=== PATIENT | male | born 1940 | race Caucasian/White ===

== ENCOUNTER → 2016-12-27 | Outpatient (REF) | payer MEDICARE, OTHER ==
[~2016-12-27] MED LIST: ALLO15TA PO; ASPI81TAEC PO; ATOR1TAB19 PO; CALTTAB5 PO; FOSA70TA PO; LISI-538 PO; [UNRECOGNIZED DRUG - OTHER] PO
[2016-12-27 13:19] LABS: PERCENT SATURATION 40.4 % (19.7-37.4)
== END ==
LOC: M LAB REF 12:32
PROVIDERS: ATTEND Internal Medicine Medical Oncology
DX: E83.118 Other hemochromatosis (principal)

== ENCOUNTER → 2017-02-02 | Outpatient (REF) | payer MEDICARE, OTHER ==
[2017-02-02 14:23] LABS: PERCENT SATURATION 47.9 % (19.7-37.4)
== END ==
LOC: M LAB REF 13:34
PROVIDERS: ATTEND Internal Medicine Medical Oncology
DX: E83.110 Hereditary hemochromatosis (principal)

== ENCOUNTER → 2017-02-13 | Outpatient (REF) | payer MEDICARE, OTHER | LOC: M LAB REF 16:23 | PROVIDERS: ATTEND Internal Medicine | DX: M10.9 Gout, unspecified (principal) ==

== ENCOUNTER → 2017-05-24 | Outpatient (REF) | payer MEDICARE, OTHER | LOC: M LAB REF 16:35 | PROVIDERS: ATTEND Internal Medicine | DX: M10.9 Gout, unspecified (principal) ==

== ENCOUNTER → 2017-06-16 | Outpatient (REF) | payer MEDICARE, OTHER ==
[2017-06-16 13:20] LABS: ANION GAP 9 MEQ/L (8-16); BLOOD UREA NITROGEN 18 MG/DL (7-18); CARBON DIOXIDE LEVEL 26 MEQ/L (21-32); CHLORIDE LEVEL 103 MEQ/L (98-107); CREATININE FOR GFR 1.09 MG/DL (0.70-1.30); GLOMERULAR FILTRATION RATE > 60.0 (>42); GLUCOSE, FASTING 88 MG/DL (83-110); POTASSIUM SERUM 4.7 MEQ/L (3.5-5.1); SODIUM LEVEL 138 MEQ/L (136-145)
== END ==
LOC: M LABDRAW1 12:10
PROVIDERS: ATTEND Internal Medicine Endocrinology, Diabetes & Metabolism
DX: M81.0 Age-related osteoporosis without current pathological fracture (principal)

== ENCOUNTER → 2017-07-17 | Outpatient (REF) | payer MEDICARE, OTHER ==
[2017-07-17 18:41] LABS: PERCENT SATURATION 89.6 % (19.7-50.0)
== END ==
LOC: M LAB REF 16:25
PROVIDERS: ATTEND Internal Medicine Medical Oncology
DX: E83.110 Hereditary hemochromatosis (principal)

== ENCOUNTER → 2017-11-29 | Outpatient (REF) | payer MEDICARE, OTHER ==
[2017-11-29 13:35] LABS: URIC ACID 4.1 MG/DL (3.5-7.2)
== END ==
LOC: M LAB REF 12:06
DX: M10.9 Gout, unspecified (principal)
CPT/HCPCS: 84550

== ENCOUNTER → 2018-01-15 | Outpatient (REF) | payer MEDICARE, OTHER ==
[2018-01-15 18:53] LABS: FERRITIN 242 NG/ML (26-388); IRON (FE) 233 UG/DL (65-175); PERCENT SATURATION 96.3 % (19.7-50.0); TOTAL IRON BINDING CAPACITY 242 UG/DL (250-450)
== END ==
LOC: M LAB REF 17:28
DX: E83.119 Hemochromatosis, unspecified (principal)
CPT/HCPCS: 83550

== ENCOUNTER → 2018-01-25 | Outpatient (REF) | payer MEDICARE, OTHER ==
[2018-01-25 11:41] LABS: CALCIUM LEVEL 9.4 MG/DL (8.8-10.2)
[2018-01-25 11:51] LABS: TOTAL 25(OH) VITAMIN D 28.5 NG/ML (30.0-100.0)
== END ==
LOC: M LABDRAW1 10:34
DX: E55.9 Vitamin D deficiency, unspecified (principal)
CPT/HCPCS: 82310

== ENCOUNTER 2018-03-06 06:40 | Day surgery (SDC) | payer MEDICARE, OTHER ==
[~2018-03-06 06:40] MED LIST changes: -ALLO15TA PO; -ASPI81TAEC PO; -ATOR1TAB19 PO; -CALTTAB5 PO; -FOSA70TA PO; -LISI-538 PO; +SLF 3 ML SYR IV; -[UNRECOGNIZED DRUG - OTHER] PO
[2018-03-06] MEDS ORDERED: fentaNYL 100 MCG/2 ML INJECTION (J3010) As Ordered (08:36)
[2018-03-06] MEDS ORDERED: MIDAZOLAM INJ 2 MG/2 ML VIAL (J2250) As Ordered (08:37)
[2018-03-06] MEDS: LIDOCAINE 2% W/EPIN INJ 20ML **PRES FREE As Ordered (09:20)
[2018-03-06] MEDS: TOBRADEX OPHTH OINT 3.5 GM As Ordered (09:20)
[2018-03-06] MEDS: LIDOCAINE 3.5 % 1ML OPHTH TOPICAL GEL OU (09:20)
== END 2018-03-06 10:35 | disposition home or self-care (01) ==
LOC: M SDC 06:40
DX: H02.413 Mechanical ptosis of bilateral eyelids (principal); H02.831 Dermatochalasis of right upper eyelid; H02.834 Dermatochalasis of left upper eyelid; I10 Essential (primary) hypertension; E78.5 Hyperlipidemia, unspecified; E03.9 Hypothyroidism, unspecified; E83.119 Hemochromatosis, unspecified; N40.0 Benign prostatic hyperplasia without lower urinary tract symptoms; Z87.891 Personal history of nicotine dependence; Z79.82 Long term (current) use of aspirin; Z79.899 Other long term (current) drug therapy
CPT/HCPCS: 67904

== ENCOUNTER → 2018-07-18 | Outpatient (REF) | payer MEDICARE, OTHER ==
[2018-07-18 20:01] LABS: FERRITIN 215 NG/ML (26-388); IRON (FE) 117 UG/DL (65-175); TOTAL IRON BINDING CAPACITY 244 UG/DL (250-450)
[2018-07-18 21:08] LABS: PERCENT SATURATION 47.9 % (19.7-50.0)
== END ==
LOC: M LAB REF 17:04
DX: D64.9 Anemia, unspecified (principal)
CPT/HCPCS: 83550

== ENCOUNTER → 2018-07-23 | Outpatient (REF) | payer MEDICARE, OTHER ==
[2018-07-23 15:49] LABS: CALCIUM LEVEL 9.4 MG/DL (8.8-10.2)
== END ==
LOC: M LABDRAW1 13:29
DX: E55.9 Vitamin D deficiency, unspecified (principal)
CPT/HCPCS: 82310

== ENCOUNTER → 2018-09-26 | Outpatient (REF) | payer MEDICARE, OTHER ==
[2018-09-26 13:53] LABS: APPEARANCE, URINE CLEAR (CLEAR); BACTERIA, URINE AUTO NEGATIVE (NEGATIVE); BILIRUBIN, URINE AUTO NEGATIVE (NEGATIVE); BLOOD, URINE BLOOD 1+ (NEGATIVE); COLOR, URINE STRAW (YELLOW); GLUCOSE, URINE (UA) AUTO NEGATIVE (NEGATIVE); KETONE, URINE AUTO NEGATIVE (NEGATIVE); LEUKOCYTE ESTERASE, URINE AUTO NEGATIVE (NEGATIVE); NITRITE, URINE AUTO NEGATIVE (NEGATIVE); PROTEIN, URINE AUTO NEGATIVE (NEGATIVE); RBC, URINE AUTO 0 /HPF (0-3); SPECIFIC GRAVITY URINE AUTO 1.006 (1.002-1.035); SQUAMOUS EPITHELIAL CELL UR AU 0 /HPF (0-6); UROBILINOGEN, URINE AUTO 0.2 mg/dL (0.0-2.0); WBC, URINE AUTO 0 /HPF (0-3)
== END ==
LOC: M SMT 12:59
DX: R10.9 Unspecified abdominal pain (principal)
CPT/HCPCS: 81001

== ENCOUNTER → 2019-02-27 | Outpatient (REF) | payer MEDICARE, OTHER ==
[~2019-02-27] MED LIST changes: +ALLO100T PO; +ALLO300T2 PO; +ASPI81TAEC PO; +ATOR1TAB19 PO; +CALCTAB7 PO; +CALTTAB5 PO; +FISH100049 PO; +FOSA70TA PO; +L-FO500T PO; +LEVA250T13 PO; +LEVO25TA5 PO; +LISI-538 PO; +LISI10TA4 PO; -SLF 3 ML SYR IV; +VITA100067 PO; +[UNRECOGNIZED DRUG - OTHER] PO
== END ==
LOC: M LAB REF 13:13
PROVIDERS: ATTEND Internal Medicine Pulmonary Disease
DX: R05 Cough (principal)

== ENCOUNTER → 2019-03-07 | Outpatient (CLI) | payer MEDICARE, OTHER ==
--- NOTE | 2019-03-07 11:54 | REP ---
COMPLETE ABDOMEN ULTRASOUND: HISTORY: Hemochromatosis. Filling defects are present in the gallbladder consistent with gallstones and gravel. The gallbladder wall measures 2.7 mm. The common bile duct measures 4.4 mm. There is fatty infiltration of the liver. Several cysts are present in the liver. These measure 8.7, 7, and 7.5 mm in maximum dimension. The visualized pancreas is normal in echogenicity. The spleen is normal in echogenicity. The spleen measures 16.4 x 4.1 x 10.3 cm. The right kidney measures 5.8 cm in transverse x 5.4 cm in AP x 11.9 cm in cephalocaudal dimensions. The left kidney measures 6.4 cm in transverse x 7 cm in AP x 12.2 cm in cephalocaudal dimensions. Multiple cysts are present in the right kidney. The largest three measure 1.5, 4.1 and 2.5 cm in maximum dimension. A 2.3 cm cyst is present in the left kidney. The distal abdominal aorta measures 2.1 cm in width. IMPRESSION: 1. Gallbladder cholelithiasis and gravel. 2. Fatty infiltration of the liver. There are several small liver cysts. 3. Bilateral renal cysts. Electronically Signed by Kervin Polanco MD 03/07/2019 12:01 P
== END ==
LOC: M RAD 09:17
PROVIDERS: ATTEND Internal Medicine Hematology & Oncology
DX: K80.20 Calculus of gallbladder without cholecystitis without obstruction (principal); K76.0 Fatty (change of) liver, not elsewhere classified; K76.89 Other specified diseases of liver; N28.1 Cyst of kidney, acquired

== ENCOUNTER 2019-04-23 08:27 | Day surgery (SDC) | payer MEDICARE, OTHER ==
[~2019-04-23] VITALS: Ht 167.6 cm; Wt 86.2 kg
[~2019-04-23 08:27] MED LIST changes: +D3 H2000 PO; +FISH1000 PO
[2019-04-23] MEDS ORDERED: NS 1,000 ML IV ONE (09:30)
[2019-04-23] MEDS ORDERED: PROPOFOL 200 MG/20 ML VIAL As Ordered ONE ×2 (10:45→11:27)
[2019-04-23 11:40] VITALS: BP 120/81
--- NOTE | 2019-04-23 12:00 | ROOR ---
Patient Name: Dheeraj Uribe Procedure Date: 04/23/2019 10:26 AM Date of : 1940 Age: 78 Room: [facility] Gender: Male Note Status: Finalized Procedure: Colonoscopy Indications: High risk colon cancer surveillance: Personal history of non-advanced adenoma, Last colonoscopy: January 2016 Providers: Fish Swain MD Referring MD: Ada SCOTT MD Requesting Provider: Medicines: Monitored Anesthesia Care Complications: No immediate complications. Procedure: Pre-Anesthesia Assessment: - Prior to the procedure, a History and Physical was performed, and patient medications and allergies were reviewed. The patient is competent. The risks and benefits of the procedure and the sedation options and risks were discussed with the patient. All questions were answered and informed consent was obtained. Patient identification and proposed procedure were verified by the physician, the nurse and the anesthesiologist in the procedure room. Mental Status Examination: alert and oriented. CV Examination: regular rate and rhythm. Prophylactic Antibiotics: The patient does not require prophylactic antibiotics. Prior Anticoagulants: The patient has taken no previous anticoagulant or antiplatelet agents. ASA Grade Assessment: III - A patient with severe systemic disease. After reviewing the risks and benefits, the patient was deemed in satisfactory condition to undergo the procedure. The anesthesia plan was to use monitored anesthesia care (MAC). Immediately prior to administration of medications, the patient was re-assessed for adequacy to receive sedatives. The heart rate, respiratory rate, oxygen saturations, blood pressure, adequacy of pulmonary ventilation, and response to care were monitored throughout the procedure. The physical status of the patient was re-assessed after the procedure. The Colonoscope was introduced through the anus and advanced to the ileocolonic anastomosis. The colonoscopy was somewhat difficult due to a redundant colon. The patient tolerated the procedure well. The quality of the bowel preparation was excellent. Findings: The perianal and digital rectal examinations were normal. Two sessile polyps were found in the proximal transverse colon. The polyps were diminutive in size. These were biopsied with a cold large-capacity forceps for histology. Estimated blood loss was minimal. Two sessile polyps were found in the distal transverse colon. The polyps were small in size. These polyps were removed with a hot snare. Resection and retrieval were complete. Two sessile polyps were found in the descending colon. The polyps were small in size. These polyps were removed with a hot snare. Resection and retrieval were complete. Estimated blood loss: none. Multiple medium-mouthed diverticula were found in the entire colon. Impression: - Two diminutive polyps in the proximal transverse colon. Biopsied. - Two small polyps in the distal transverse colon, removed with a hot snare. Resected and retrieved. - Two small polyps in the descending colon, removed with a hot snare. Resected and retrieved. - Diverticulosis in the entire examined colon. Recommendation: - Discharge patient to home. - Resume previous diet. - Continue present medications. - Await pathology results. Fish Swain MD Fish Swain MD 04/23/2019 11:59:45 AM Electronically signed by Fish Swain MD Number of Addenda: 0 Note Initiated On: 04/23/2019 10:26 AM Estimated Blood Loss: Estimated blood loss was minimal.
== END 2019-04-23 12:14 | disposition home or self-care (01) ==
LOC: M OPP 08:27
PROVIDERS: ATTEND Surgery
DX: D12.3 Benign neoplasm of transverse colon (principal); D12.4 Benign neoplasm of descending colon; K63.5 Polyp of colon; K57.30 Diverticulosis of large intestine without perforation or abscess without bleeding; Z86.010 Personal history of colon polyps

== ENCOUNTER → 2019-07-24 | Outpatient (REF) | payer MEDICARE, OTHER ==
[2019-07-24 16:10] LABS: BLOOD UREA NITROGEN 25 MG/DL (7-18); CALCIUM LEVEL 8.9 MG/DL (8.8-10.2); CARBON DIOXIDE LEVEL 23 MEQ/L (21-32); CHLORIDE LEVEL 104 MEQ/L (98-107); CREATININE FOR GFR 1.07 MG/DL (0.70-1.30); GLOMERULAR FILTRATION RATE > 60.0 (>42); GLUCOSE, FASTING 87 MG/DL (70-100); POTASSIUM SERUM 4.7 MEQ/L (3.5-5.1); SODIUM LEVEL 137 MEQ/L (136-145)
[2019-07-24 16:21] LABS: TOTAL 25(OH) VITAMIN D 38.4 NG/ML (30.0-100.0)
== END ==
LOC: M LABDRAW1 12:29
PROVIDERS: ATTEND Nurse Practitioner Family
DX: M81.0 Age-related osteoporosis without current pathological fracture (principal); E55.9 Vitamin D deficiency, unspecified

== ENCOUNTER → 2019-07-31 | Outpatient (CLI) | payer MEDICARE, OTHER ==
[~2019-07-31] VITALS: Ht 165.1 cm; Wt 88.2 kg
[2019-07-31 10:55] VITALS: BP 139/59
[2019-07-31] MEDS: ZOLEDRONIC ACID 5 MG in APPROPRIATE DILUENT 1 EA IV ONE (11:22)
[2019-07-31 11:55] VITALS: BP 125/64
== END ==
LOC: M INFU 10:49
PROVIDERS: ATTEND Internal Medicine Endocrinology, Diabetes & Metabolism
DX: M81.0 Age-related osteoporosis without current pathological fracture (principal)
CPT/HCPCS: 96365; J3489

== ENCOUNTER 2019-09-01 17:00 | Emergency (ER) | payer MEDICARE, OTHER ==
[~2019-09-01] VITALS: Ht 167.6 cm; Wt 86.8 kg
[2019-09-01] MEDS ORDERED: TRAM50TA2 PO (17:09)
[2019-09-01] MEDS ORDERED: FLOM0.4C39 PO (17:09)
[2019-09-01] MEDS ORDERED: CALCTAB89 PO (17:09)
[2019-09-01] MEDS ORDERED: LIDOCAINE 5% OINT 30 GM TOP STA (17:25)
[2019-09-01] MEDS ORDERED: ACETAMINOPHEN 325 MG TAB PO ONE (17:30)
[2019-09-01] MEDS ORDERED: METHOCARBAMOL 500 MG TAB PO ONE (17:30)
[2019-09-01] MEDS ORDERED: METH1TAB40 PO (18:54)
[2019-09-01] MEDS ORDERED: LIDO1CRE2 TOP (18:54)
[2019-09-01 19:00] VITALS: BP 114/61
== END 2019-09-01 19:04 | disposition home or self-care (01) ==
LOC: M ED 17:00
DX: M54.2 Cervicalgia (principal); M62.838 Other muscle spasm; K21.9 Gastro-esophageal reflux disease without esophagitis; M19.90 Unspecified osteoarthritis, unspecified site; N40.1 Benign prostatic hyperplasia with lower urinary tract symptoms; I10 Essential (primary) hypertension; Z79.899 Other long term (current) drug therapy

== ENCOUNTER → 2019-09-17 | Outpatient (CLI) | payer MEDICARE, OTHER ==
[~2019-09-17] MED LIST changes: +CALCTAB89 PO; +FLOM0.4C39 PO; +LIDO1CRE2 TOP; +METH1TAB40 PO; +TRAM50TA2 PO
[2019-09-17 10:40] LABS: HEMATOCRIT 47.4 % (42.0-52.0); HEMOGLOBIN 15.6 g/dl (13.5-17.5); MEAN CORPUSCULAR HEMOGLOBIN 33.4 pg (27.0-33.0); MEAN CORPUSCULAR HGB CONC 32.9 g/dl (32.0-36.5); MEAN CORPUSCULAR VOLUME 101.5 fl (80.0-96.0); PLATELET COUNT, AUTOMATED 162 10^3/uL (150-450); RED BLOOD COUNT 4.67 10^6/uL (4.30-6.10); WHITE BLOOD COUNT 6.9 10^3/uL (4.0-10.0)
--- NOTE | 2019-09-17 10:44 | REP ---
Two-view chest: 09/17/2019. Indication: Preoperative assessment. Comparison: None. Findings: The lungs are clear. There is no pleural effusion or pneumothorax. The cardiomediastinal silhouette is unremarkable. Impression: No acute cardiopulmonary process. Electronically Signed by Isaiah Thompson DO 09/17/2019 10:36 A
[2019-09-17 10:51] LABS: INR 1.14; PROTHROMBIN TIME 14.3 SECONDS (11.8-14.0)
[2019-09-17 11:06] LABS: ERYTHROCYTE SEDIMENTATION RATE 19 mm/hr (0-20)
[2019-09-17 11:12] LABS: ALBUMIN 3.9 GM/DL (3.2-5.2); ALT/SGPT 51 U/L (12-78); BILIRUBIN,TOTAL 0.6 MG/DL (0.2-1.0); BLOOD UREA NITROGEN 18 MG/DL (7-18); CALCIUM LEVEL 9.9 MG/DL (8.8-10.2); CARBON DIOXIDE LEVEL 28 MEQ/L (21-32); CHLORIDE LEVEL 106 MEQ/L (98-107); CREATININE FOR GFR 1.05 MG/DL (0.70-1.30); GLOMERULAR FILTRATION RATE > 60.0 (>42); GLUCOSE, FASTING 92 MG/DL (70-100); POTASSIUM SERUM 4.4 MEQ/L (3.5-5.1); SODIUM LEVEL 141 MEQ/L (136-145); TOTAL PROTEIN 7.6 GM/DL (6.4-8.2)
--- NOTE | 2019-09-17 15:23 | ECGEPIP ---
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
== END ==
LOC: M LAB 09:29
PROVIDERS: ATTEND Orthopaedic Surgery
DX: Z01.811 Encounter for preprocedural respiratory examination (principal); M16.11 Unilateral primary osteoarthritis, right hip

== ENCOUNTER 2019-10-14 07:30 | Inpatient (IN) | payer MEDICARE, OTHER ==
--- NOTE | 2019-09-23 18:12 | CR ---
DATE OF CONSULTATION: 09/23/2019 CONSULTATION REPORT FOR: Dr. Girish Pete REASON FOR CONSULTATION: Right total hip arthroplasty. Dear Dr. Pete, Thank you for asking me to see Mr. Dheeraj Uribe in consultation prior to his right total hip arthroplasty (MERY). Mr. Uribe is, as you know, a 79-year-old gentleman with a past medical history of hemochromatosis hypertension, hyperlipidemia, osteoarthritis (OA), degenerative joint disease (DJD). The patient has had hip and back pain with extensive evaluation and treatment interventions, eager to proceed with hip replacement, hoping that he will be able to be more mobile. The patient is active, maintaining his home and yard. He denies any chest pain, palpitations, syncope or presyncope. The patient has a history of hemochromatosis. He sees them shortly. He expects that he will need phlebotomy next week. The patient has benign prostatic hypertrophy (BPH). He has a history of transurethral resection of the prostate (TURP) times two. His nocturia has improved with the use of the tamsulosin. The patient has osteoporosis. He follows with Dr. Bella Pete. He is maintained on IV Reclast. The patient sees pulmonary associates for bronchiectasis. He has morning phlegm production, chronic, stable and unchanged. The patient has a history of colonic polyps. He is up-to-date with his colonoscopy. He has had a total of 43 polyps removed over the years. The patient reports that he has been placed on mupirocin topically five times a day in the nose as well as chlorhexidine bathing prior to surgery. He is not aware that he had any methicillin-resistant Staphylococcus aureus (MRSA) screening. The patient otherwise denies any fevers or chills, chest pain or shortness of breath, nausea, vomiting or change in bowels. PAST MEDICAL HISTORY: 1. Hypertension. 2. Hyperlipidemia. 3. Lumbar disc herniation, 1970 surgical repair. 4. Partial colectomy in 1999 secondary to abscess. 5. Benign prostatic hypertrophy (BPH), status post transurethral resection of the prostate (TURP). 6. Tobacco abuse, quit 10/08/2013. 7. History of alcohol overuse. 8. Right eyelid surgery in 12/07/2005. 9. Gout. 10. Hyperglycemia. 11. Adenomatous colonic polyps. Last colonoscopy 04/23/2019, repeat five years. 12. History of hemochromatosis in 2013, recurrent phlebotomies. 13. Osteoporosis, known compression fractures, status post Reclast June 2016, June 2018 and 2018. 14. Hypoandrogenism 2014. 15. Mild degenerative valve disease per echo 03/13/2015. 16. Status post bilateral cataract extractions 2015. 17. Erectile dysfunction. 18. Left inguinal hernia per MRI of the pelvis 06/11/2013. 19. Hypothyroidism. 20. Bronchiectasis per pulmonary consult, confirmed with chest CT 2018 showing emphysema, bullae and bronchiectasis. 21. Fatty liver per ultrasound 03/07/2019. 22. Cholelithiasis per ultrasound 03/07/2019. MEDICATIONS: - allopurinol 300 mg daily - atorvastatin 20 mg daily - calcium plus D daily - fish oil 1000 mg daily - levothyroxine 25 mcg daily - lisinopril 10 mg daily - lysine 500 mg daily - tamsulosin 0.4 mg daily - vitamin D3 2000 international units daily ALLERGIES: No known drug allergies. FAMILY HISTORY: Hypertension, father with a heart attack at 89. Mother obesity and osteoarthritis, of natural causes at 86. A daughter has hyperthyroidism. A brother has hypertension and carpal tunnel. Grandparents had chronic obstructive pulmonary disease (COPD). SOCIAL HISTORY: , lives with his daughter and son-in-law in a house they own with him having a small apartment. The patient smoked 56 years. He quit 10/08/2013. Alcohol: He consumes two beers a day. PHYSICAL EXAMINATION: No acute distress. VITAL SIGNS: As documented, weight is 187 with a body mass index (BMI) of 31, oxygen saturation is 96%, blood pressure 116/80 with a heart rate of 96. HEENT: Head is normocephalic. Neck is supple. Pupils equal, reactive to light. Extraocular movements are intact. His sclera is anicteric. Ears: A scant amount of cerumen. Tympanic membranes slightly scarred. Tongue is midline. He has upper denture. Posterior pharynx without inflammation. Neck is supple. No thyromegaly, jugular venous distention (JVD) or carotid bruits. RESPIRATORY: Increased anteroposterior (AP) diameter, decreased breath sounds, symmetric excursion. CARDIOVASCULAR: Regular rate and rhythm, soft systolic murmur. ABDOMEN: Protuberant, soft, nontender. No hepatosplenomegaly. GENITOURINARY (): Deferred. EXTREMITIES: No cyanosis, clubbing or edema. DERMATOLOGIC: Multiple moles. NEUROLOGIC: Alert and oriented. Cranial nerves III-XII are intact. LABORATORY DATA: Normal INR, CBC except for an MCV of 101, normal metabolic profile and liver panel. The patient's last sugar was in May at 85 with lipids showing total cholesterol 162, triglycerides of 155. EKG shows normal sinus rhythm, unchanged. Chest x-ray shows no acute disease. IMPRESSION: Mr. Dheeraj Uribe is a 79-year-old gentleman with multiple cardiovascular risk factors positive for age, hyperlipidemia, hyperglycemia, hypertension who has no signs or symptoms indicative of cardiovascular ischemia and is felt to be optimized and at low risk from cardiovascular complications from the proposed surgical intervention which can be further minimized by the followin. Hypertension. Take lisinopril as usual the night before surgery. 2. Hyperlipidemia. Stop fish oil one week before surgery. Take atorvastatin as usual the evening prior to surgery. 3. Gout. Take allopurinol as usual the morning of surgery. 4. Hypothyroid. Take levothyroxine the morning of surgery with a sip of water. 5. Osteoporosis. Hold calcium and D the morning of surgery. He is up-to-date with Reclast infusion. 6. Hemochromatosis. He sees hematology/oncology shortly and expect he will be phlebotomized before surgery. 7. Hyperglycemia. Dietary advice reinforced. 8. Osteoarthritis. No nonsteroidal antiinflammatory drugs (NSAIDs) one week before surgery. I have approved the use of Tylenol. Thank you very much for this consultation. Please call with questions or concerns.
--- NOTE | 2019-10-08 10:27 | HPE ---
DATE OF ADMISSION: 10/14/2019 HISTORY OF PRESENT ILLNESS: Mr. Uribe is a pleasant 79-year-old male with continuing symptomatic right hip osteoarthritis and avascular necrosis. Mr. Uribe consented for a right total hip arthroplasty per Dr. Girish Pete. Medical optimization per Dr. Sofia with x-rays showing advanced osteoarthritis and AVN. ALLERGIES: None known to drugs. MEDICATION LIST: Includes: - allopurinol 300 mg daily - atorvastatin 20 mg daily - calcium plus D daily - fish oil 1000 mg daily - levothyroxine 25 mcg daily - lisinopril 10 mg daily - lysine 500 mg daily - tamsulosin 0.4 mg daily - Vitamin D3 2000 international units daily MEDICAL PROBLEM LIST: Includes: Symptomatic right hip osteoarthritis with avascular necrosis. Hypercholesteremia. Hypothyroidism. Hypertension. Benign prostatic hypertrophy (BPH). PAST MEDICAL HISTORY: Hypertension. Hyperlipidemia. Lumbar disc herniation. Partial colectomy 1999 secondary to abscess. Benign prostatic hypertrophy. Tobacco abuse, quit 10/08/2013. History of alcohol overuse. Gout. Hyperglycemia. Adenomatous colonic polyps. Hemochromatosis 2013, recurrent phlebotomies. Osteoporosis. Hypoandrogenism 2014. Mild degenerative valve disease per echo. Erectile dysfunction. Left inguinal hernia. Hypothyroidism. Bronchiectasis. Fatty liver. PAST SURGICAL HISTORY: Lumbar disk surgical repair 1969. Partial colectomy 1999. Transurethral resection of prostate (TURP). Right eyelid surgery 12/07/2005. Last colonoscopy 04/23/2019. Bilateral cataract extractions 2015. Left inguinal hernia repair 06/11/2013. SOCIAL HISTORY: He is , lives with his daughter and son-in-law in a house they own with him having a small apartment. He smoked 56 years, quit 2012. Consumes two beers a day. FAMILY HISTORY: Hypertension. Father with heart attack at 89. Mother obesity, arthritis, of natural causes at 86. Daughter has hypothyroidism. Brother has hypertension and carpal tunnel. Grandparents had chronic obstructive pulmonary disease. REVIEW OF SYSTEMS: Denies chest pain, shortness of breath, dyspnea on exertion, fever, chills, malaise, upper respiratory or urinary tract symptoms. LABORATORY DATA: Labs were reviewed 09/24/2019 shows MCV 102.5, MCH 34.1. Lymph percentage 17.6. [place] percentage 17.2. Lymph number 1.1. [place] number 1.0. ProTime 14.3. Anion gap 7, MCV 101.5. MCH 33.4. The subsequent mentioned MCV and MCH were from 09/17/2019. EKG results by Dr. Silveira sinus rhythm, [facility] 09/17/2019. Chest x-ray [facility] service date 09/17/2019 no acute cardiopulmonary process. PHYSICAL EXAMINATION: Blood pressure 120/76, pulse 68, temperature 97.8, height 65.5, weight 185 pounds, 5 ounces, body mass index (BMI) 30.4, respirations 17. This is a pleasant 79-year-old male in no acute distress. He is alert and oriented times three. Mood and affect are appropriate. He is ambulating favoring of his left lower extremity, antalgia about his right. Right hip range of motion is limited and irritable throughout range. Bilateral lower extremity skin is intact. Benign noninfectious looking. Bowel sounds times four, soft, nontender. Chest rises symmetrically. Regular rate and rhythm. Lungs clear to auscultation. Neck supple. Negative JVD or bruits. Normocephalic. IMPRESSION: 1. 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 2. Patient consented for right total hip arthroplasty per Dr. Girish Pete. 3. Medical optimization per Dr. Sofia, 09/23/2019. 4. On-call to OR 2 grams IV Kefzol in OR. 5. Sequential compression devices (SCD) and thromboembolic deterrent stockings (TEDS) in OR. INDICATION Hydrated. MTDD
[~2019-10-14] VITALS: Ht 167.6 cm; Wt 84.4 kg
[~2019-10-14 07:30] MED LIST changes: +LIDOCAINE 1% MDV 20ML VIAL SQ PRN; +LR 1,000 ML IV ONE; +ceFAZolin SOD 2 GM in IV 1 EA IV ONE
[2019-10-14] MEDS ORDERED: D 202000 PO (12:05)
--- NOTE | 2019-10-14 12:13 | IPN ---
DATE: The patient seen and examined. He wished to go ahead with a right total hip arthroplasty. He understands the nature this, the risks of bleeding, infection, damage to nerves, vessels, persistent pain, wear loosening, dislocation, leg length inequality, blood clots, medical problems, among others. Preop clearance was obtained.
[2019-10-14] MEDS ORDERED: BUPIVACAINE LIPOSOME/PF 1.3% 20ML VIAL (13.3MG/ML)(EXPAREL)(C9290 PER1MG) As Ordered ONE (12:17)
[2019-10-14] MEDS ORDERED: ceFAZolin 1GM INJ (J0690 PER 500MG) As Ordered ONE (12:17)
[2019-10-14] MEDS ORDERED: EPINEPHrine INJ 1 MG/ML 1ML AMP As Ordered ONE (12:17)
[2019-10-14] MEDS ORDERED: TRANEXAMIC ACID 100 MG/ML 10ML VIAL As Ordered ONE (12:17)
[2019-10-14] MEDS ORDERED: MIDAZOLAM INJ 2 MG/2 ML VIAL (J2250) As Ordered ONE (14:27)
[2019-10-14] MEDS ORDERED: PROPOFOL 200 MG/20 ML VIAL As Ordered ONE ×2 (14:27→14:53)
[2019-10-14] MEDS ORDERED: LIDOCAINE 2% INJ 100 MG/5 ML SDV (FOR ANES.) As Ordered ONE (14:27)
[2019-10-14] MEDS ORDERED: PHENYLEPHRINE INJ 10MG/ML VIAL (J2370) As Ordered ONE (14:47)
[2019-10-14] MEDS ORDERED: PHENYLephrine HCL 500 MCG/5 ML (100MCG/ML) SYRINGE (J2370) As Ordered ONE (14:53)
[2019-10-14] MEDS ORDERED: FLEET ENEMA PR PRN (16:00)
[2019-10-14] MEDS ORDERED: fentaNYL 100 MCG/2 ML INJECTION (J3010) IV PRN (16:00)
[2019-10-14] MEDS ORDERED: LR 1,000 ML IV SCH ×2 (16:00)
[2019-10-14] MEDS ORDERED: PERCOCET 5MG/325MG TAB PO PRN (16:00)
[2019-10-14] MEDS ORDERED: MORPHINE 2 MG/ML 1ML VIAL (J2270) IV PRN ×2 (16:00)
[2019-10-14] MEDS ORDERED: ACETAMINOPHEN TAB 650MG DOSE (2X325MG) PO PRN (16:00)
[2019-10-14] MEDS ORDERED: ONDANSETRON 4MG/2ML VIAL (J2405) IV PRN ×2 (16:00)
[2019-10-14 17:00] VITALS: BP 134/71
[2019-10-14 17:30] VITALS: BP 144/88
--- NOTE | 2019-10-14 17:40 | CR ---
DATE OF CONSULTATION: 10/14/2019 My preceptor for this encounter is Dr. Roshan White REQUESTING PROVIDER: Dr. Girish Pete REASON FOR CONSULTATION: Medical management, status post surgery. HISTORY OF PRESENT ILLNESS: Mr. Uribe is a pleasant 79-year-old male who is status post right total hip arthroplasty per Dr. Girish Pete for symptomatic right hip osteoarthritis and avascular necrosis. His medical optimization prior to surgery was done by his primary care provider, Dr. Ada Sofia. He is seen in the post-anesthesia care unit (PACU) and has no complaint at this time. PAST MEDICAL HISTORY: Hypertension. Hyperlipidemia. Lumbar disc herniation. Benign prostatic hypertrophy. History of tobacco abuse, quit in October 2013. Gout. History of alcohol overuse. Hyperglycemia. History of adenomatous colonic polyps. Hemochromatosis, managed with recurrent phlebotomies. Osteoporosis. Hypoandrogenism. Mild degenerative valve disease, per echocardiogram Erectile dysfunction. Hypothyroidism. Fatty liver disease secondary to hemochromatosis. History of bronchiectasis. HOME MEDICATION LIST: - allopurinol 300 mg daily - atorvastatin 20 mg daily - calcium plus D daily - fish oil 1000 mg daily - Synthroid 25 mcg daily - lisinopril 10 mg daily - Lysine 500 mg daily - Flomax 0.4 mg daily - vitamin D3 2000 international units daily PAST SURGICAL HISTORY: Lumbar disc surgical repair 1969. Partial colectomy in 1999 secondary to an abscess. Transurethral resection of the prostate. Right eyelid blepharoplasty in 2005. Colonoscopy most recent is April 2019. Bilateral cataract extractions in 2015. Left inguinal hernia repair in 2012. ALLERGIES: No known drug allergies. SOCIAL HISTORY: He is a , he lives with his son and [id number] in a house they own with him having a small apartment in it. He is a former smoker, he quit in 2012 after smoking for 56 years. He continues to consume two beers daily. FAMILY HISTORY: Significant for hypertension. His father from a heart attack at age 89. His mother of natural causes at age 86 and she had obesity and arthritis. His daughter has hypothyroidism. A brother has hypertension and carpal tunnel syndrome. Both grandparents had chronic obstructive pulmonary disease (COPD). REVIEW OF SYSTEMS: Constitutional: Denies weight loss, night sweats, fevers or chills. Eyes: Denies any visual changes, headache, double vision, floaters or feeling like a curtain got pulled down. Ear, nose and throat: Denies runny nose, epistaxis, sinus pain, tinnitus, sore throat or odynophagia. Cardiovascular: Denies chest pain, shortness of breath, paroxysmal nocturnal dyspnea (PND), orthopnea, edema, or palpitations. Respiratory: Denies any cough, sputum production, wheezes, hemoptysis or shortness of breath. Gastrointestinal: Denies abdominal pain, difficulty swallowing, nausea, vomiting, diarrhea, constipation, obstipation, hematemesis, hematochezia, melena or tenesmus. Genitourinary: Denies any incontinence, dysuria, hematuria, nocturia, polyuria or hesitancy. Does have a history of BPH for which he is on Flomax. Musculoskeletal: Denies any pain, stiffness, joint swelling or decreased range of motion. He is status post right total hip arthroplasty by Dr. Girish Pete, done today. Integumentary: Denies any new rashes, pruritus, dry lesions or wounds. Neurologic: Denies any changes to sight/smell/hearing/taste, seizures, headaches, paresthesias, anesthesias or speech problems. Psychiatric: Denies any anxiety, depression, paranoia, anhedonia or episodes of axel. Endocrine: Denies any diarrhea, increased appetite, tremor, palpitations, constipation, dry skin, polydipsia, polyuria or polyphagia. Hematologic: Denies any new anemia, purpura or petechiae. Lymphatic: Denies any new lumps or bumps anywhere. PHYSICAL EXAMINATION: Vital signs: Temperature 97.2, pulse 75 and regular, respiratory rate 18 and unlabored, blood pressure 117/55, pulse oximetry is 97% on room air. General: This is an older male who appears stated age, resting in the post-anesthesia care unit (PACU) in no acute distress. He is pleasant and cooperative. HEENT: Atraumatic, normocephalic. Mucous membranes are moist. The patient has his own teeth and dentition is fair. Eyes are clear. Sclerae are anicteric and conjunctivae are without pallor. Neck: Supple, no masses. No lymphadenopathy, no bruits. Heart: Regular rate and rhythm. No murmurs, gallops or rubs. Lungs: Clear to auscultation bilaterally. No wheezes, rhonchi or rales. Abdomen: Mildly protuberant but soft and nontender. No distension noted. No pain to palpation. No masses. Extremities: There is a dressing placed over the right hip. No clubbing, cyanosis or edema is noted. Pulses are 2+ in each of the four extremities. Skin: No rashes or ecchymosis are noted. Portable x-ray of the right hip shows hardware in good position.. ASSESSMENT: This is a 79-year-old male who is status post right total hip arthroplasty by Dr. Girish Pete. Hospitalist has been consulted for medical management of his multiple medical conditions. PLAN: 1. 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 Status post right total hip arthroplasty per Dr. Girish Pete done today. Pain medication, physical therapy and deep vein thrombosis (DVT) prophylaxis per orthopedics. 2. Hypertension. Continue with home lisinopril. 3. Hyperlipidemia. Continue with home atorvastatin 20 mg daily. 4. Hypothyroidism. Continue with home dose of levothyroxine 25 mcg daily. 5. History of gout: Continue allopurinol 300 mg daily. 6. BPH: Continue home tamsulosin 0.4 mg daily. 7. History of osteoarthritis, continue vitamin D 2000 international units daily. 8. DVT prophylaxis per orthopedics. Thank you for your consultation. We will follow him along while he is hospitalized. GARTH
[2019-10-14] MEDS: VITAMIN D 1,000 INTERNATIONAL UNITS TABLET PO SCH (17:49)
--- NOTE | 2019-10-14 17:51 | REP ---
Right hip: Two views obtained portably. History: Postop. Findings: AP and cross-table lateral portably obtained radiographs the right hip document right hip arthroplasty components in good position. Lateral skin rex are seen. Electronically Signed by Ehsan Wiseman MD 10/14/2019 05:43 P
[2019-10-14 18:30] VITALS: BP 143/85
--- NOTE | 2019-10-14 18:34 | RO ---
DATE OF PROCEDURE: 10/14/2019 PREOPERATIVE DIAGNOSIS: Right hip osteoarthritis. POSTOPERATIVE DIAGNOSIS: Right hip osteoarthritis. PROCEDURE: Right total hip arthroplasty using a Bureau size 7 high offset and a +8.5 36 ball with a 54 acetabular component. SURGEON: Dr. Girish Pete SHEAR GRINDER OPERATOR: Benji ANESTHESIA: Spinal. ESTIMATED BLOOD LOSS: 200 mL. COMPLICATIONS: None. INDICATIONS: A 79-year-old gentleman who wished to go ahead with hip replacement on the right. He was no longer able to tolerate his hip pain. He had failed conservative management. DESCRIPTION OF PROCEDURE: The patient was taken to the operating room, placed in the left lateral decubitus position on the [place] positioner. All areas were padded appropriately. The right hip was prepped and draped (dictation cut off). A time-out was performed. A longitudinal incision was made over the lateral aspect of the hip. Sharp dissection was carried down through subcutaneous tissue, controlled hemostasis with the cautery. I then incised the fascia cabrera, exposed the abductors and then divided the anterior 40% of the abductor off, exposing the femoral neck. It was evident that his abductors were relatively atrophic, they had some fatty infiltration and overall relatively poor quality. I dislocated the hip, put the leg in the bag, used the canal initiating reamer, the canal finding reamer, and the lateralizing reamer and sequentially reamed up to a size 7, which had good bony purchase. The neck cut was then made using a broach and cut this about a half to three-quarters of a fingerbreadth up from the lesser trochanter. I then directed attention to the acetabulum. He did have fairly copious soft tissue around the acetabulum, which was removed. I then sequentially reamed up to a size 53 and placed a 54 cup in the appropriate amount of anteversion and horizontal tilt. I used the external alignment guide. Excellent fit was noted. I had irrigated copiously and made sure there was good bleeding bone. The acetabular liner was then placed for polyethylene. I then impacted this in place and made sure it was well seated. Directed our attention back to the femur. I sequentially broached up to a size 7, which was slightly proud but overall had excellent fit and fill. I then used various different neck lengths and high and regular offset and eventually decided on a high offset +8.5 in order to provide adequate stability. He had no impingement. He had excellent motion and minimal shuck in full extension. Soft tissue tension seemed to be appropriate. I then removed the trial components, impacted the 7 high offset Bureau stem, made sure it was well seated, dried the taper, placed the 36 +8.5 head, impacted this in place. We then reduced the hip without difficulty, put the hip through a range of motion. Excellent stability, soft tissue tension were noted. Excellent range of motion. There was no impingement. Cup position appeared to be appropriate. I had also removed a small osteophyte from the posterior lip of the acetabulum. I made sure that the head was well impacted on the stem. I had irrigated multiple times up to this point. I again copiously irrigated, placed the TXA in the deep tissues. I placed the Exparel in the deep tissues and repaired the minimus with #1 Vicryl suture, the abductor with #1 Vicryl suture, but again the abductor tissue was relatively atrophic and hard to get a good purchase with a suture, so I used extra #1 Vicryl sutures in a [id number] fashion, placing several stitches through bone and overall obtaining a reasonable repair. I then irrigated, closed the fascia cabrera with #1 Vicryl suture and a running Stratafix. The subcu was closed with #2-0 Vicryl and the skin with rex. Sterile dressing was applied, and he was taken to recovery room in stable condition. There were no known complications. The plan will be routine postop. The child welfare assistant was instrumental in holding retractors and assisting in reducing and dislocating the hip and assisting in wound closure.
[2019-10-14 19:30] VITALS: BP 135/73
[2019-10-14 20:30] VITALS: BP 135/72
[2019-10-14] MEDS: ATORVASTATIN 20 MG TAB PO SCH (21:15)
[2019-10-14] MEDS: lisinopriL 10 MG TAB PO SCH (21:17)
[2019-10-14 21:30] VITALS: BP 141/73
[2019-10-14] MEDS: ceFAZolin SOD 2 GM in IV 1 EA IV SCH (21:40)
[2019-10-14] MEDS: PERCOCET 5MG/325MG TAB PO PRN (22:14)
[2019-10-15 02:00] VITALS: BP 124/73
[2019-10-15] MEDS: PERCOCET 5MG/325MG TAB PO PRN ×4 (03:34→17:22)
[2019-10-15] MEDS: LEVOTHYROXINE 25MCG TABLET (0.025MG) PO SCH (05:15)
[2019-10-15] MEDS: ceFAZolin SOD 2 GM in IV 1 EA IV SCH (05:16)
[2019-10-15 05:58] LABS: HEMATOCRIT 37.2 % (42.0-52.0); HEMOGLOBIN 12.2 g/dl (13.5-17.5); MEAN CORPUSCULAR HEMOGLOBIN 34.2 pg (27.0-33.0); MEAN CORPUSCULAR HGB CONC 32.8 g/dl (32.0-36.5); MEAN CORPUSCULAR VOLUME 104.2 fl (80.0-96.0); PLATELET COUNT, AUTOMATED 121 10^3/uL (150-450); RED BLOOD COUNT 3.57 10^6/uL (4.30-6.10); WHITE BLOOD COUNT 7.5 10^3/uL (4.0-10.0)
[2019-10-15 06:00] VITALS: BP 123/63
[2019-10-15 06:19] LABS: BLOOD UREA NITROGEN 14 MG/DL (7-18); CARBON DIOXIDE LEVEL 26 MEQ/L (21-32); CHLORIDE LEVEL 108 MEQ/L (98-107); CREATININE FOR GFR 1.06 MG/DL (0.70-1.30); GLOMERULAR FILTRATION RATE > 60.0 (>42); GLUCOSE, FASTING 110 MG/DL (70-100); SODIUM LEVEL 140 MEQ/L (136-145)
[2019-10-15] MEDS ORDERED: XARE10TA PO (08:27)
[2019-10-15] MEDS ORDERED: PERC5TAB12 PO (08:27)
[2019-10-15] MEDS: SENOKOT S TAB PO SCH ×2 (08:52→21:21)
[2019-10-15] MEDS: allopurinoL 300 MG TAB PO SCH (08:52)
[2019-10-15] MEDS: VITAMIN D 1,000 INTERNATIONAL UNITS TABLET PO SCH (08:52)
[2019-10-15] MEDS: MIRALAX *UNIT DOSE* 17GM PACKET PO SCH (08:52)
[2019-10-15] MEDS: MOM 30ML SUSPENSION UDC PO SCH ×2 (08:52→08:56)
[2019-10-15 10:00] VITALS: BP 126/64
--- NOTE | 2019-10-15 11:16 | IPNPDOC ---
Text Note Date of Service The patient was seen on 10/15/19. NOTE SUBJECTIVE: Patient is seen at bedside. Overnight he had urinary retention where he had to be straight cathed twice. He says that with his history of BPH status post TURP, he does find it difficult to urinate sometimes. It is especially difficult for him to urinate when he has a crowd of people watching him. He denies any other acute events overnight, fevers, chills, shortness of breath. He will be working with PT today OBJECTIVE: Vital signs: See below General: This is an older male who appears stated age, in no acute distress. HEENT: Atraumatic, normocephalic. Mucous membranes are moist. Neck: Supple, no masses. No lymphadenopathy, no bruits. Heart: Regular rate and rhythm. No murmurs, gallops or rubs. Lungs: Clear to auscultation bilaterally. No wheezes, rhonchi or rales. Abdomen: Soft and nontender. No distension noted. No pain to palpation. No masses. Extremities: There is a dressing placed over the right hip. No clubbing, cyanosis or edema is noted. Pulses are 2+ in each of the four extremities. Skin: No rashes or ecchymosis are noted. Portable x-ray of the right hip shows hardware in good position.. ASSESSMENT: This is a 79-year-old male who is status post right total hip arthroplasty by Dr. Girish Pete (POD #1). Hospitalist has been consulted for medical management of his multiple medical conditions. PLAN: 1. 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 POD #1 status post right total hip arthroplasty per Dr. Girish Pete done today. Pain medication, physical therapy and deep vein thrombosis (DVT) prophylaxis per orthopedics. 2. Hypertension. Continue with home lisinopril. 3. Hyperlipidemia. Continue with home atorvastatin 20 mg daily. 4. Hypothyroidism. Continue with home dose of levothyroxine 25 mcg daily. 5. History of gout: Continue allopurinol 300 mg daily. 6. BPH: Continue home tamsulosin 0.4 mg daily. Needed straight cath x 2 overnight. May be due to shyness/anesthesia. 7. History of osteoarthritis, continue vitamin D 2000 international units daily. 8. DVT prophylaxis per orthopedics. Disposition: Per Orthopedics Thank you for your consultation. We will follow him along while he is hospitalized. VS,Fishbone, I+O VS, Fishbone, I+O Laboratory Tests 10/15/19 05:32 Vital Signs Date Time Temp Pulse Resp B/P (MAP) Pulse Ox O2 Delivery O2 Flow Rate FiO2 10/15/19 10:00 98.4 92 17 126/64 (84) 91 Room Air 10/15/19 06:00 2.0 I&O- Last 24 Hours up to 6 AM 10/15/19 06:00 Intake Total 910 ml Output Total 1700 ml Balance -790 ml GME ATTESTATION GME ATTESTATION My faculty preceptor for this patient encounter was physically present during the encounter and was fully available. All aspects of the patient interview, examination, medical decision making process, and medical care plan development were reviewed and approved by the faculty preceptor. The faculty preceptor is aware and concurs with the plan as stated in the body of this note and will attest to such by his/her cosignature. ELINA DURAN D.O. Oct 15, 2019 11:10
[2019-10-15 14:00] VITALS: BP 126/67
[2019-10-15] MEDS: RIVAROXABAN 10 MG TAB (XARELTO) PO SCH (17:21)
[2019-10-15 20:25] VITALS: BP 131/67
[2019-10-15 21:21] VITALS: BP 131/67
[2019-10-15] MEDS: TAMSULOSIN 0.4 MG CAP PO SCH (21:21)
[2019-10-15] MEDS: ATORVASTATIN 20 MG TAB PO SCH (21:21)
[2019-10-15] MEDS: lisinopriL 10 MG TAB PO SCH (21:21)
[2019-10-16] MEDS: PERCOCET 5MG/325MG TAB PO PRN ×5 (00:32→20:23)
[2019-10-16] MEDS: LEVOTHYROXINE 25MCG TABLET (0.025MG) PO SCH (05:21)
[2019-10-16 05:50] VITALS: BP 125/68
[2019-10-16 07:05] LABS: HEMATOCRIT 40.5 % (42.0-52.0); MEAN CORPUSCULAR HEMOGLOBIN 33.7 pg (27.0-33.0); MEAN CORPUSCULAR HGB CONC 32.1 g/dl (32.0-36.5); MEAN CORPUSCULAR VOLUME 104.9 fl (80.0-96.0); PLATELET COUNT, AUTOMATED 121 10^3/uL (150-450); RED BLOOD COUNT 3.86 10^6/uL (4.30-6.10); WHITE BLOOD COUNT 9.2 10^3/uL (4.0-10.0)
[2019-10-16 07:27] LABS: BLOOD UREA NITROGEN 11 MG/DL (7-18); CALCIUM LEVEL 9.3 MG/DL (8.8-10.2); CARBON DIOXIDE LEVEL 26 MEQ/L (21-32); CHLORIDE LEVEL 107 MEQ/L (98-107); CREATININE FOR GFR 1.02 MG/DL (0.70-1.30); GLOMERULAR FILTRATION RATE > 60.0 (>42); GLUCOSE, FASTING 122 MG/DL (70-100); POTASSIUM SERUM 4.1 MEQ/L (3.5-5.1); SODIUM LEVEL 139 MEQ/L (136-145)
[2019-10-16 08:40] VITALS: BP 90/58
[2019-10-16] MEDS: MOM 30ML SUSPENSION UDC PO SCH (09:00)
--- NOTE | 2019-10-16 09:26 | IPNPDOC ---
Text Note Date of Service The patient was seen on 10/16/19. NOTE SUBJECTIVE: Patient is seen at bedside. Overnight he was able to void spontaneously. He feels much stronger today, and his pain is much more controlled with Percocet, per orthopedics. He is eager to work with physical therapy today. He denies any other acute events overnight, fevers, chills, shortness of breath. OBJECTIVE: Vital signs: See below General: This is an older male who appears stated age, in no acute distress. HEENT: Atraumatic, normocephalic. Mucous membranes are moist. Neck: Supple, no masses. No lymphadenopathy, no bruits. Heart: Regular rate and rhythm. No murmurs, gallops or rubs. Lungs: Clear to auscultation bilaterally. No wheezes, rhonchi or rales. Abdomen: Soft and nontender. No distension noted. No pain to palpation. No masses. Extremities: There is a dressing placed over the right hip. No clubbing, cyanosis or edema is noted. Pulses are 2+ in each of the four extremities. Skin: No rashes or ecchymosis are noted. Portable x-ray of the right hip shows hardware in good position.. ASSESSMENT: This is a 79-year-old male who is status post right total hip arthroplasty by Dr. Girish Pete (POD #2). Hospitalist has been consulted for medical management of his multiple medical conditions. PLAN: 1. 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 POD #2 status post right total hip arthroplasty per Dr. Girish Pete done today. Pain medication, physical therapy and deep vein thrombosis (DVT) prophylaxis per orthopedics. 2. Hypertension. Blood pressure well controlled. Continue with home lisinopr il. 3. Hyperlipidemia. Continue with home atorvastatin 20 mg daily. 4. Hypothyroidism. Continue with home dose of levothyroxine 25 mcg daily. 5. History of gout: Continue allopurinol 300 mg daily. 6. BPH: Continue home tamsulosin 0.4 mg daily. Was able to void spontaneously overnight. 7. History of osteoarthritis, continue vitamin D 2000 international units daily. 8. DVT prophylaxis per orthopedics. Disposition: Per Orthopedics Thank you for your consultation. We will follow him along while he is hospitalized. VS,Viktoria, I+O VS, Viktoria, I+O Laboratory Tests 10/16/19 06:49 Vital Signs Date Time Temp Pulse Resp B/P (MAP) Pulse Ox O2 Delivery O2 Flow Rate FiO2 10/16/19 05:56 17 10/16/19 05:50 98.6 96 125/68 (87) 93 Room Air 10/15/19 06:00 2.0 I&O- Last 24 Hours up to 6 AM 10/16/19 06:00 Intake Total 1860 ml Output Total 1500 ml Balance 360 ml GME ATTESTATION GME ATTESTATION My faculty preceptor for this patient encounter was physically present during the encounter and was fully available. All aspects of the patient interview, examination, medical decision making process, and medical care plan development were reviewed and approved by the faculty preceptor. The faculty preceptor is aware and concurs with the plan as stated in the body of this note and will attest to such by his/her cosignature. ELINA DURAN D.O. Oct 16, 2019 07:33
[2019-10-16] MEDS: MIRALAX *UNIT DOSE* 17GM PACKET PO SCH (09:58)
[2019-10-16] MEDS: SENOKOT S TAB PO SCH ×2 (09:59→20:23)
[2019-10-16] MEDS: VITAMIN D 1,000 INTERNATIONAL UNITS TABLET PO SCH (09:59)
[2019-10-16] MEDS: allopurinoL 300 MG TAB PO SCH (09:59)
[2019-10-16] MEDS ORDERED: NS 1,000 ML IV ONE (10:00)
[2019-10-16] MEDS: RIVAROXABAN 10 MG TAB (XARELTO) PO SCH (17:51)
[2019-10-16] MEDS: ATORVASTATIN 20 MG TAB PO SCH (20:23)
[2019-10-16] MEDS: TAMSULOSIN 0.4 MG CAP PO SCH (20:23)
[2019-10-16 22:00] VITALS: BP 130/64
[2019-10-17] MEDS: PERCOCET 5MG/325MG TAB PO PRN ×2 (05:31→10:07)
[2019-10-17] MEDS: LEVOTHYROXINE 25MCG TABLET (0.025MG) PO SCH (05:31)
[2019-10-17 06:00] VITALS: BP 122/68
--- NOTE | 2019-10-17 07:14 | IPNPDOC ---
Text Note Date of Service The patient was seen on 10/17/19. NOTE SUBJECTIVE: Patient is seen at bedside. Overnight he was unable to void spontaneously and needed to be straight cathed. His blood pressure has been better overnight. He feels much stronger today, and his pain is much more controlled with Percocet, per orthopedics. He is eager to work with physical therapy today. He denies any other acute events overnight, fevers, chills, shortness of breath. OBJECTIVE: Vital signs: See below General: This is an older male who appears stated age, in no acute distress. HEENT: Atraumatic, normocephalic. Mucous membranes are moist. Neck: Supple, no masses. No lymphadenopathy, no bruits. Heart: Regular rate and rhythm. No murmurs, gallops or rubs. Lungs: Clear to auscultation bilaterally. No wheezes, rhonchi or rales. Abdomen: Soft and nontender. No distension noted. No pain to palpation. No masses. Extremities: There is a dressing placed over the right hip. No clubbing, cyanosis or edema is noted. Pulses are 2+ in each of the four extremities. Skin: No rashes or ecchymosis are noted. Portable x-ray of the right hip shows hardware in good position.. ASSESSMENT: This is a 79-year-old male who is status post right total hip arthroplasty by Dr. Girish Pete (POD #3). Hospitalist has been consulted for medical management of his multiple medical conditions. PLAN: 1. 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 POD #3 status post right total hip arthroplasty per Dr. Girish Pete done today. Pain medication, physical therapy and deep vein thrombosis (DVT) prophylaxis per orthopedics. 2. Hypertension. Blood pressure was actually hypotensive yesterday lisinopril was held. Instructions to only give lisinopril if systolic >140. 3. Hyperlipidemia. Continue with home atorvastatin 20 mg daily. 4. Hypothyroidism. Continue with home dose of levothyroxine 25 mcg daily. 5. History of gout: Continue allopurinol 300 mg daily. 6. BPH: Continue home tamsulosin 0.4 mg daily. Was unable to void spontaneously overnight. May need workman catheter and urology follow up, per orthopedics. History of TURP many years ago. 7. History of osteoarthritis, continue vitamin D 2000 international units daily. 8. DVT prophylaxis per orthopedics. Disposition: Per Orthopedics Thank you for your consultation. We will follow him along while he is hospitalized. VS,Fishbone, I+O VS, Fishbone, I+O Vital Signs Date Time Temp Pulse Resp B/P (MAP) Pulse Ox O2 Delivery O2 Flow Rate FiO2 10/17/19 06:01 17 10/16/19 22:00 98.3 98 130/64 (86) 92 Room Air 10/15/19 06:00 2.0 I&O- Last 24 Hours up to 6 AM 10/17/19 06:00 Intake Total 540 ml Output Total 915 ml Balance -375 ml GME ATTESTATION GME ATTESTATION My faculty preceptor for this patient encounter was physically present during the encounter and was fully available. All aspects of the patient interview, examination, medical decision making process, and medical care plan development were reviewed and approved by the faculty preceptor. The faculty preceptor is aware and concurs with the plan as stated in the body of this note and will attest to such by his/her cosignature. ELINA DURAN D.O. Oct 17, 2019 07:14
[2019-10-17 08:00] VITALS: BP 110/60
[2019-10-17 08:23] VITALS: BP 110/60
[2019-10-17] MEDS: VITAMIN D 1,000 INTERNATIONAL UNITS TABLET PO SCH (08:43)
[2019-10-17] MEDS: allopurinoL 300 MG TAB PO SCH (08:43)
[2019-10-17] MEDS: SENOKOT S TAB PO SCH (08:43)
[2019-10-17] MEDS: MIRALAX *UNIT DOSE* 17GM PACKET PO SCH (08:43)
[2019-10-17] MEDS: MOM 30ML SUSPENSION UDC PO SCH (08:44)
== END 2019-10-17 14:40 | disposition home health service (06) | DRG 470 ==
LOC: M OR 11:10 → M MS5PR 16:50
PROVIDERS: ADMIT Orthopaedic Surgery; ATTEND Orthopaedic Surgery
PROC: 0SR904A Replacement of Right Hip Joint with Ceramic on Polyethylene Synthetic Substitute, Uncemented, Open Approach (ICD-10-PCS; principal; 2019-10-14 13:45)
DX: M16.11 Unilateral primary osteoarthritis, right hip (principal); M87.051 Idiopathic aseptic necrosis of right femur; Z79.899 Other long term (current) drug therapy; E78.00 Pure hypercholesterolemia, unspecified; E03.9 Hypothyroidism, unspecified; I10 Essential (primary) hypertension; N40.0 Benign prostatic hyperplasia without lower urinary tract symptoms; Z87.891 Personal history of nicotine dependence; M10.9 Gout, unspecified; M81.0 Age-related osteoporosis without current pathological fracture; K76.0 Fatty (change of) liver, not elsewhere classified; E66.01 Morbid (severe) obesity due to excess calories

== ENCOUNTER 2019-12-04 12:46 | Outpatient (RCR) | payer MEDICARE, OTHER ==
[~2019-12-04 12:46] MED LIST changes: +D 202000 PO; -LIDOCAINE 1% MDV 20ML VIAL SQ PRN; -LR 1,000 ML IV ONE; +PERC5TAB12 PO; +XARE10TA PO; -ceFAZolin SOD 2 GM in IV 1 EA IV ONE
== END 2019-12-06 ==
LOC: M PT 12:46
PROVIDERS: ATTEND Physician Assistant
DX: Z96.641 Presence of right artificial hip joint (principal)

== ENCOUNTER 2019-12-27 12:46 | Outpatient (RCR) | payer MEDICARE, OTHER | END 2020-01-04 | LOC: M PT 12:46 | PROVIDERS: ATTEND Physician Assistant | DX: Z47.1 Aftercare following joint replacement surgery (principal); Z96.641 Presence of right artificial hip joint ==

== ENCOUNTER → 2020-03-05 | Outpatient (CLI) | payer MEDICARE, OTHER ==
[2020-03-05 10:51] LABS: BASO # 0.1 10^3/uL (0.0-0.2); BASO % 1.1 % (0.0-1.0); EOS # 0.1 10^3/uL (0.0-0.5); EOS % 1.9 % (0.0-3.0); HEMATOCRIT 47.1 % (42.0-52.0); HEMOGLOBIN 15.6 g/dl (13.5-17.5); LYMPH # 1.1 10^3/uL (1.5-5.0); LYMPH % 20.5 % (24.0-44.0); MEAN CORPUSCULAR HEMOGLOBIN 32.8 pg (27.0-33.0); MEAN CORPUSCULAR HGB CONC 33.1 g/dl (32.0-36.5); MEAN CORPUSCULAR VOLUME 99.2 fl (80.0-96.0); MONO # 0.8 10^3/uL (0.0-0.8); MONO % 16.1 % (0.0-5.0); NEUTROPHILS # 3.1 10^3/uL (1.5-8.5); NEUTROPHILS % 59.6 % (36.0-66.0); PLATELET COUNT, AUTOMATED 129 10^3/uL (150-450); RED BLOOD COUNT 4.75 10^6/uL (4.30-6.10); WHITE BLOOD COUNT 5.2 10^3/uL (4.0-10.0)
[2020-03-05 11:19] LABS: PERCENT SATURATION 70.2 % (19.7-50.0)
== END ==
LOC: M PLALAB 08:19
PROVIDERS: ATTEND Internal Medicine Hematology
DX: E83.110 Hereditary hemochromatosis (principal)

== ENCOUNTER → 2020-04-02 | Outpatient (CLI) | payer MEDICARE, OTHER ==
[2020-04-02 10:56] LABS: BASO % 0.8 % (0.0-1.0); EOS # 0.1 10^3/uL (0.0-0.5); EOS % 1.6 % (0.0-3.0); HEMATOCRIT 44.4 % (42.0-52.0); HEMOGLOBIN 15.2 g/dl (13.5-17.5); LYMPH # 0.9 10^3/uL (1.5-5.0); LYMPH % 17.3 % (24.0-44.0); MEAN CORPUSCULAR HEMOGLOBIN 34.6 pg (27.0-33.0); MEAN CORPUSCULAR HGB CONC 34.2 g/dl (32.0-36.5); MEAN CORPUSCULAR VOLUME 101.1 fl (80.0-96.0); MONO % 18.8 % (0.0-5.0); NEUTROPHILS # 3.1 10^3/uL (1.5-8.5); NEUTROPHILS % 61.1 % (36.0-66.0); PLATELET COUNT, AUTOMATED 121 10^3/uL (150-450); RED BLOOD COUNT 4.39 10^6/uL (4.30-6.10)
[2020-04-02 11:29] LABS: PERCENT SATURATION 51.8 % (19.7-50.0)
== END ==
LOC: M PLALAB 08:21
PROVIDERS: ATTEND Internal Medicine Hematology
DX: E83.110 Hereditary hemochromatosis (principal)

== ENCOUNTER → 2020-04-07 | Outpatient (CLI) | payer MEDICARE, OTHER ==
[2020-04-07 12:27] LABS: CALCIUM LEVEL 9.3 MG/DL (8.8-10.2)
== END ==
LOC: M PLALAB 08:04
PROVIDERS: ATTEND Internal Medicine Endocrinology, Diabetes & Metabolism
DX: M81.0 Age-related osteoporosis without current pathological fracture (principal); E55.9 Vitamin D deficiency, unspecified

== ENCOUNTER → 2020-05-12 | Outpatient (REF) | payer MEDICARE, OTHER ==
[~2020-05-12] MED LIST changes: +CALC-211 PO; -CALCTAB7 PO
== END ==
LOC: M LAB REF 12:21
PROVIDERS: ATTEND Internal Medicine
DX: M10.9 Gout, unspecified (principal)

== ENCOUNTER → 2020-07-08 | Outpatient (CLI) | payer MEDICARE, OTHER ==
[2020-07-08 15:12] LABS: BASO % 0.9 % (0.0-1.0); EOS # 0.1 10^3/uL (0.0-0.5); EOS % 1.9 % (0.0-3.0); HEMATOCRIT 45.2 % (42.0-52.0); HEMOGLOBIN 15.1 g/dl (13.5-17.5); LYMPH # 0.9 10^3/uL (1.5-5.0); LYMPH % 19.4 % (24.0-44.0); MEAN CORPUSCULAR HGB CONC 33.4 g/dl (32.0-36.5); MEAN CORPUSCULAR VOLUME 104.6 fl (80.0-96.0); MONO # 0.8 10^3/uL (0.0-0.8); MONO % 16.9 % (0.0-5.0); NEUTROPHILS # 2.8 10^3/uL (1.5-8.5); PERCENT SATURATION 33.3 % (19.7-50.0); PLATELET COUNT, AUTOMATED 133 10^3/uL (150-450); RED BLOOD COUNT 4.32 10^6/uL (4.30-6.10); WHITE BLOOD COUNT 4.7 10^3/uL (4.0-10.0)
== END ==
LOC: M PLALAB 08:00
PROVIDERS: ATTEND Internal Medicine Hematology & Oncology
DX: E83.119 Hemochromatosis, unspecified (principal)

== ENCOUNTER → 2020-10-15 | Outpatient (CLI) | payer MEDICARE, OTHER ==
[~2020-10-15] MED LIST changes: +B-1225002 SL; +D31000TA2 PO
[2020-10-15 10:54] LABS: HEMATOCRIT 47.4 % (42.0-52.0); HEMOGLOBIN 15.8 g/dl (13.5-17.5); MEAN CORPUSCULAR HEMOGLOBIN 34.2 pg (27.0-33.0); MEAN CORPUSCULAR HGB CONC 33.3 g/dl (32.0-36.5); MEAN CORPUSCULAR VOLUME 102.6 fl (80.0-96.0); PLATELET COUNT, AUTOMATED 138 10^3/uL (150-450); RED BLOOD COUNT 4.62 10^6/uL (4.30-6.10); WHITE BLOOD COUNT 5.5 10^3/uL (4.0-10.0)
[2020-10-15 11:18] LABS: PERCENT SATURATION 56.1 % (19.7-50.0)
== END ==
LOC: M PLALAB 08:04
PROVIDERS: ATTEND Internal Medicine Hematology & Oncology
DX: E83.119 Hemochromatosis, unspecified (principal)

== ENCOUNTER → 2020-11-18 | Outpatient (REF) | payer MEDICARE, OTHER | LOC: M LAB REF 16:19 | PROVIDERS: ATTEND Internal Medicine | DX: E83.119 Hemochromatosis, unspecified (principal) ==

== ENCOUNTER → 2020-12-21 | Outpatient (CLI) | payer MEDICARE, OTHER ==
[~2020-12-21] MED LIST changes: -LISI-538 PO; +LISI10TA22 PO; -LISI10TA4 PO; +LISI20TA33 PO; +METH-1164 PO; -METH1TAB40 PO
[2020-12-21 14:29] LABS: HEMATOCRIT 44.3 % (42.0-52.0); HEMOGLOBIN 14.7 g/dl (13.5-17.5); MEAN CORPUSCULAR HEMOGLOBIN 34.5 pg (27.0-33.0); MEAN CORPUSCULAR HGB CONC 33.2 g/dl (32.0-36.5); PLATELET COUNT, AUTOMATED 136 10^3/uL (150-450); RED BLOOD COUNT 4.26 10^6/uL (4.30-6.10); WHITE BLOOD COUNT 6.1 10^3/uL (4.0-10.0)
== END ==
LOC: M PLALAB 11:40
PROVIDERS: ATTEND Internal Medicine Hematology & Oncology
DX: E83.119 Hemochromatosis, unspecified (principal)

== ENCOUNTER → 2021-01-18 | Outpatient (CLI) | payer MEDICARE, OTHER ==
[~2021-01-18] MED LIST changes: +ASPI-569 PO; -ASPI81TAEC PO
[2021-01-18 13:05] LABS: HEMATOCRIT 47.4 % (42.0-52.0); MEAN CORPUSCULAR HEMOGLOBIN 34.9 pg (27.0-33.0); MEAN CORPUSCULAR HGB CONC 33.8 g/dl (32.0-36.5); MEAN CORPUSCULAR VOLUME 103.3 fl (80.0-96.0); PLATELET COUNT, AUTOMATED 156 10^3/uL (150-450); RED BLOOD COUNT 4.59 10^6/uL (4.30-6.10)
== END ==
LOC: M PLALAB 09:24
PROVIDERS: ATTEND Internal Medicine Hematology & Oncology
DX: E83.119 Hemochromatosis, unspecified (principal)

== ENCOUNTER → 2021-02-16 | Outpatient (CLI) | payer MEDICARE, OTHER ==
[2021-02-16 13:40] LABS: HEMATOCRIT 49.2 % (42.0-52.0); HEMOGLOBIN 15.9 g/dl (13.5-17.5); MEAN CORPUSCULAR HEMOGLOBIN 33.5 pg (27.0-33.0); MEAN CORPUSCULAR HGB CONC 32.3 g/dl (32.0-36.5); MEAN CORPUSCULAR VOLUME 103.8 fl (80.0-96.0); PLATELET COUNT, AUTOMATED 149 10^3/uL (150-450); RED BLOOD COUNT 4.74 10^6/uL (4.30-6.10); WHITE BLOOD COUNT 5.3 10^3/uL (4.0-10.0)
== END ==
LOC: M PLALAB 09:09
PROVIDERS: ATTEND Internal Medicine Hematology & Oncology
DX: E83.119 Hemochromatosis, unspecified (principal)

== ENCOUNTER → 2021-06-29 | Outpatient (CLI) | payer MEDICARE, OTHER ==
[~2021-06-29] MED LIST changes: +prevagen
[2021-06-29 14:34] LABS: CALCIUM LEVEL 9.7 MG/DL (8.8-10.2)
== END ==
LOC: M PLALAB 09:31
PROVIDERS: ATTEND Internal Medicine Endocrinology, Diabetes & Metabolism
DX: M81.0 Age-related osteoporosis without current pathological fracture (principal)

== ENCOUNTER → 2021-07-21 | Outpatient (REF) | payer MEDICARE, OTHER ==
[2021-07-21 12:53] LABS: MAGNESIUM LEVEL 2.1 MG/DL (1.8-2.4); THYROID STIMULATING HORMONE 1.81 uIU/ML (0.358-3.740); URIC ACID 3.5 MG/DL (3.5-7.2)
== END ==
LOC: M LAB 11:46
PROVIDERS: ATTEND Internal Medicine
DX: E03.9 Hypothyroidism, unspecified (principal); I10 Essential (primary) hypertension; M10.9 Gout, unspecified

== ENCOUNTER → 2021-09-13 | Outpatient (CLI) | payer MEDICARE, OTHER ==
--- NOTE | 2021-09-13 16:45 | DEXAMM ---
INDICATION: AGE RELATED OSTEOPOROSIS. COMPARISON: 07/09/2019, 05/29/2015. TECHNIQUE: Bone density was measured using dual-energy x-ray absorptiometry (DEXA). FINDINGS: AP SPINE L1-L4 BMD 1.193 g/cm2 Young Adult T-Score 0.0 Age Matched Z-Score 0.3. LT FEMUR, TOTAL BMD 0.957 g/cm2 Young Adult T-Score -0.4 Age Matched Z-Score 0.1. LT NECK BMD 0.840 g/cm2 Young Adult T-Score -1.4 Age Matched Z-Score -0.3. IMPRESSION: There is normal bone density of the spine. There is low bone density of the left hip. The density of the spine has increased 10.8% since the initial exam on 05/29/2015. The density of the spine increased 0.3% since most recent exam on 07/09/2019. The density of the left hip has increased 8.6% since initial exam on 05/29/2015. The density of the left hip has increased 5.0% since most recent exam on 07/09/2019. FOLLOW-UP: Recommendation for the next bone density exam: 2 years. <Electronically signed by Christopher Tanner > 09/13/21 [id number]
== END ==
LOC: M WHC 13:01
PROVIDERS: ATTEND Internal Medicine Endocrinology, Diabetes & Metabolism
DX: M81.0 Age-related osteoporosis without current pathological fracture (principal)

== ENCOUNTER → 2021-10-27 | Outpatient (CLI) | payer MEDICARE, OTHER ==
[~2021-10-27] MED LIST changes: +PREDOPD OS
[2021-10-27 10:31] LABS: BASO # 0.1 10^3/uL (0.0-0.2); BASO % 0.9 % (0.0-1.0); EOS # 0.1 10^3/uL (0.0-0.5); EOS % 1.5 % (0.0-3.0); HEMATOCRIT 45.9 % (42.0-52.0); HEMOGLOBIN 15.1 g/dl (13.5-17.5); MEAN CORPUSCULAR HEMOGLOBIN 34.1 pg (27.0-33.0); MEAN CORPUSCULAR HGB CONC 32.9 g/dl (32.0-36.5); MEAN CORPUSCULAR VOLUME 103.6 fl (80.0-96.0); MONO # 0.7 10^3/uL (0.0-0.8); MONO % 12.7 % (2.0-8.0); NEUTROPHILS # 3.5 10^3/uL (1.5-8.5); NEUTROPHILS % 65.5 % (36.0-66.0); PLATELET COUNT, AUTOMATED 132 10^3/uL (150-450); RED BLOOD COUNT 4.43 10^6/uL (4.30-6.10); WHITE BLOOD COUNT 5.4 10^3/uL (4.0-10.0)
[2021-10-27 11:12] LABS: BLOOD UREA NITROGEN 21 MG/DL (7-18); CALCIUM LEVEL 9.3 MG/DL (8.8-10.2); CARBON DIOXIDE LEVEL 27 MEQ/L (21-32); CHLORIDE LEVEL 105 MEQ/L (98-107); CREATININE FOR GFR 1.02 MG/DL (0.70-1.30); FERRITIN 124 NG/ML (26-388); GLOMERULAR FILTRATION RATE > 60.0 (>42); GLUCOSE, FASTING 98 MG/DL (70-100); IRON (FE) 154 UG/DL (65-175); PERCENT SATURATION 58.1 % (19.7-50.0); POTASSIUM SERUM 4.7 MEQ/L (3.5-5.1); SODIUM LEVEL 138 MEQ/L (136-145); TOTAL IRON BINDING CAPACITY 265 UG/DL (250-450)
== END ==
LOC: M PLALAB 08:59
PROVIDERS: ATTEND Internal Medicine Hematology & Oncology
DX: E83.119 Hemochromatosis, unspecified (principal)

== ENCOUNTER → 2021-11-17 | Outpatient (REF) | payer MEDICARE, OTHER | LOC: M LAB REF 10:23 | PROVIDERS: ATTEND Internal Medicine | DX: M10.9 Gout, unspecified (principal) ==

== ENCOUNTER → 2022-03-14 | Outpatient (CLI) | payer MEDICARE ==
[~2022-03-14] MED LIST changes: -D31000TA2 PO; +VITA100093 PO
== END ==
LOC: M WHC 08:33
PROVIDERS: ATTEND Internal Medicine
DX: E83.110 Hereditary hemochromatosis (principal); R10.9 Unspecified abdominal pain

== ENCOUNTER → 2022-09-08 | Outpatient (CLI) | payer MEDICARE, OTHER ==
[~2022-09-08] MED LIST changes: +ALEN70TA87 PO; +ATOR1TAB21 PO; +B-12100010 PO; +B6/F1TAB PO; -FOSA70TA PO; +OMEGCAP9 PO; +TAMS1CAP17 PO
== END ==
LOC: M LABSMTC 11:30
PROVIDERS: ATTEND Anesthesiology
DX: Z01.812 Encounter for preprocedural laboratory examination (principal); Z20.822 Contact with and (suspected) exposure to COVID-19

== ENCOUNTER 2022-09-13 09:27 | Day surgery (SDC) | payer MEDICARE, OTHER ==
[~2022-09-13] VITALS: Ht 168.9 cm; Wt 81.4 kg
[~2022-09-13 09:27] MED LIST changes: +LIDOCAINE 2% 100MG/5ML SDV (FOR ANES.) As Ordered ONE; +NS 1,000 ML IV ONE; +propofoL 200 MG/20 ML VIAL As Ordered ONE
[2022-09-13 11:17] VITALS: BP 130/66
== END 2022-09-13 11:19 | disposition home or self-care (01) ==
LOC: M OPP 09:27
PROVIDERS: ATTEND Surgery
DX: Z86.010 Personal history of colon polyps (principal); Z80.0 Family history of malignant neoplasm of digestive organs; D12.6 Benign neoplasm of colon, unspecified; K57.30 Diverticulosis of large intestine without perforation or abscess without bleeding; Z87.891 Personal history of nicotine dependence; Z79.02 Long term (current) use of antithrombotics/antiplatelets; Z79.899 Other long term (current) drug therapy; I10 Essential (primary) hypertension; E78.00 Pure hypercholesterolemia, unspecified; E03.9 Hypothyroidism, unspecified; N40.0 Benign prostatic hyperplasia without lower urinary tract symptoms; E83.119 Hemochromatosis, unspecified; M10.9 Gout, unspecified; Z90.49 Acquired absence of other specified parts of digestive tract

== ENCOUNTER → 2023-02-01 | Outpatient (CLI) | payer OTHER ==
[~2023-02-01] MED LIST changes: -LIDOCAINE 2% 100MG/5ML SDV (FOR ANES.) As Ordered ONE; -NS 1,000 ML IV ONE; -propofoL 200 MG/20 ML VIAL As Ordered ONE
== END ==
LOC: M WUC 14:02
PROVIDERS: ATTEND Internal Medicine
DX: M54.50 Low back pain, unspecified (principal)

== ENCOUNTER → 2023-03-03 | Outpatient (CLI) | payer MEDICARE, OTHER | LOC: M RAD 13:22 | PROVIDERS: ATTEND Internal Medicine | DX: R09.89 Other specified symptoms and signs involving the circulatory and respiratory systems (principal) ==

== ENCOUNTER → 2023-03-27 | Outpatient (CLI) | payer MEDICARE | LOC: M RAD 12:54 | PROVIDERS: ATTEND Orthopaedic Surgery | DX: M54.59 Other low back pain (principal) ==

== ENCOUNTER → 2023-09-15 | Outpatient (CLI) | payer OTHER, MEDICARE | LOC: M WHC 12:39 | PROVIDERS: ATTEND Internal Medicine Endocrinology, Diabetes & Metabolism | DX: M81.0 Age-related osteoporosis without current pathological fracture (principal) ==

== ENCOUNTER → 2023-10-06 | Outpatient (CLI) | payer OTHER, MEDICARE ==
[2023-10-06 16:32] LABS: BLOOD UREA NITROGEN 27 MG/DL (9-23); CALCIUM LEVEL 9.6 MG/DL (8.3-10.6); CARBON DIOXIDE LEVEL 26 MMOL/L (20-31); CHLORIDE LEVEL 107 MMOL/L (98-107); CREATININE FOR GFR 1.01 MG/DL (0.70-1.30); GLOMERULAR FILTRATION RATE > 60.0 (>35); GLUCOSE, FASTING 72 MG/DL (74-106); POTASSIUM SERUM 4.9 MMOL/L (3.5-5.1); SODIUM LEVEL 141 MMOL/L (136-145)
== END ==
LOC: M PLALAB 13:31
PROVIDERS: ATTEND Internal Medicine Endocrinology, Diabetes & Metabolism
DX: M81.0 Age-related osteoporosis without current pathological fracture (principal)

== ENCOUNTER 2024-01-10 17:40 | Emergency (ER) | payer OTHER, MEDICARE ==
[~2024-01-10] VITALS: Ht 167.6 cm; Wt 81.8 kg
[~2024-01-10 17:40] MED LIST changes: +BLOOKIT XX; +RA M500C PO
[2024-01-10 18:19] LABS: BASO # 0.1 10^3/uL (0.0-0.2); BASO % 0.6 % (0.0-1.0); EOS # 0.1 10^3/uL (0.0-0.5); EOS % 1.1 % (0.0-3.0); HEMATOCRIT 42.9 % (42.0-52.0); HEMOGLOBIN 14.7 g/dl (13.5-17.5); LYMPH # 0.7 10^3/uL (1.5-5.0); LYMPH % 8.3 % (24.0-44.0); MEAN CORPUSCULAR HEMOGLOBIN 35.4 pg (27.0-33.0); MEAN CORPUSCULAR HGB CONC 34.3 g/dl (32.0-36.5); MEAN CORPUSCULAR VOLUME 103.4 fl (80.0-96.0); MONO # 1.2 10^3/uL (0.0-0.8); MONO % 15.1 % (2.0-8.0); NEUTROPHILS % 74.4 % (36.0-66.0); PLATELET COUNT, AUTOMATED 156 10^3/uL (150-450); RED BLOOD COUNT 4.15 10^6/uL (4.30-6.10); WHITE BLOOD COUNT 8.1 10^3/uL (4.0-10.0)
[2024-01-10 18:30] LABS: INR 1.15; PROTHROMBIN TIME 14.3 SECONDS (12.5-14.5)
[2024-01-10 18:43] LABS: ALBUMIN 3.8 G/DL (3.2-5.2); ALKALINE PHOSPHATASE 72 U/L (46-116); ALT/SGPT 21 U/L (7.0-40); AST/SGOT 17 U/L (<34); BILIRUBIN,DIRECT 0.2 MG/DL (<0.4); BILIRUBIN,TOTAL 0.7 MG/DL (0.3-1.2); BLOOD UREA NITROGEN 22 MG/DL (9-23); CARBON DIOXIDE LEVEL 24 MMOL/L (20-31); CHLORIDE LEVEL 105 MMOL/L (98-107); CK-MB VALUE MASS < 1.0 NG/ML (<3.6); CPK CREATINE PHOSPHOKINASE 47 U/L (46-171); CREATININE FOR GFR 1.18 MG/DL (0.70-1.30); GLOMERULAR FILTRATION RATE > 60.0 (>35); GLUCOSE, FASTING 75 MG/DL (74-106); MB/CK RELATIVE INDEX 2.12 (< OR =4); SODIUM LEVEL 137 MMOL/L (136-145); TOTAL PROTEIN 6.5 G/DL (5.7-8.2)
[2024-01-10 18:45] LABS: FREE T4 0.93 NG/DL (0.89-1.76); THYROID STIMULATING HORMONE 3.461 uIU/ML (0.55-4.78)
[2024-01-10] MEDS ORDERED: PROHANCE 279.3MG/ML 15ML VIAL As Ordered ONE (21:54)
[2024-01-10] MEDS ORDERED: PROHANCE 279.3MG/ML 5ML VIAL As Ordered ONE (21:54)
[2024-01-11 02:01] VITALS: BP 137/79; TEMP 97.3; O2SAT 92
[2024-02-02] MEDS ORDERED: LISI5TAB11 PO (09:29)
== END 2024-01-11 02:41 | disposition home or self-care (01) ==
LOC: EDBD 17:40 → M ED 17:40
DX: R55 Syncope and collapse (principal); I49.3 Ventricular premature depolarization; I10 Essential (primary) hypertension; E78.5 Hyperlipidemia, unspecified; Z79.899 Other long term (current) drug therapy

== ENCOUNTER → 2024-01-11 | Outpatient (CLI) | payer MEDICARE | LOC: M CARPUL 09:57 | PROVIDERS: ATTEND Internal Medicine | DX: I49.3 Ventricular premature depolarization (principal) ==

== ENCOUNTER → 2024-03-05 | Outpatient (REF) | payer OTHER, MEDICARE ==
[~2024-03-05] MED LIST changes: +LISI5TAB11 PO
== END ==
LOC: M LAB REF 11:59
PROVIDERS: ATTEND Internal Medicine
DX: M10.9 Gout, unspecified (principal)

== ENCOUNTER → 2024-04-23 | Outpatient (CLI) | payer MEDICARE | LOC: M RAD 09:20 | PROVIDERS: ATTEND Specialist | DX: E83.119 Hemochromatosis, unspecified (principal) ==

== ENCOUNTER → 2024-06-21 | Outpatient (CLI) | payer MEDICARE | LOC: M PLARAD 12:22 | PROVIDERS: ATTEND Student in an Organized Health Care Education/Training Program | DX: I61.1 Nontraumatic intracerebral hemorrhage in hemisphere, cortical (principal) ==

== ENCOUNTER → 2025-01-22 | Outpatient (REF) | payer MEDICARE ==
[~2025-01-22] MED LIST changes: -LIDO1CRE2 TOP; +LIDO4CRE12 TOP; +LISI10TA22
== END ==
LOC: M LAB REF 12:16
PROVIDERS: ATTEND Internal Medicine
DX: M10.9 Gout, unspecified (principal)

== ENCOUNTER → 2025-06-02 | Outpatient (CLI) | payer MEDICARE ==
[~2025-06-02] MED LIST changes: -FLOM0.4C39 PO; +TAMS-18 PO
== END ==
LOC: M WUC 12:40
PROVIDERS: ATTEND Internal Medicine
DX: M54.14 Radiculopathy, thoracic region (principal)

== ENCOUNTER 2025-09-18 09:14 | Day surgery (SDC) | payer MEDICARE ==
[~2025-09-18] VITALS: Ht 168.9 cm; Wt 83.0 kg
[~2025-09-18 09:14] MED LIST changes: +VITA-297 PO
[2025-09-18] MEDS ORDERED: GLYCOPYRROLATE INJ 0.2 MG/ML 2 ML VIAL As Ordered ONE (09:52)
[2025-09-18] MEDS ORDERED: LIDOCAINE 2% 100 MG/5 ML SDV (FOR ANES.) As Ordered ONE (09:52)
[2025-09-18] MEDS ORDERED: PHENYLephrine 500MCG 5ML (100MCG/ML) SYRINGE As Ordered ONE (12:08)
[2025-09-18 12:13] VITALS: TEMP 97.8
[2025-09-18 12:38] VITALS: BP 110/59; O2SAT 95
== END 2025-09-18 12:57 | disposition home or self-care (01) ==
LOC: M OPP 09:14
PROVIDERS: ATTEND Surgery
DX: D12.6 Benign neoplasm of colon, unspecified (principal); K57.30 Diverticulosis of large intestine without perforation or abscess without bleeding; Z86.0100 Personal history of colon polyps, unspecified; K21.00 Gastro-esophageal reflux disease with esophagitis, without bleeding; K31.7 Polyp of stomach and duodenum; K29.70 Gastritis, unspecified, without bleeding; R13.10 Dysphagia, unspecified; Z86.73 Personal history of transient ischemic attack (TIA), and cerebral infarction without residual deficits; Z79.899 Other long term (current) drug therapy; Z87.891 Personal history of nicotine dependence
CPT/HCPCS: 43251; 45385; 88305; J1596; J2371

== ENCOUNTER → 2025-10-08 | Outpatient (CLI) | payer MEDICARE, OTHER | LOC: M WHC 08:20 | PROVIDERS: ATTEND Internal Medicine | DX: M89.9 Disorder of bone, unspecified (principal); Z78.0 Asymptomatic menopausal state ==